=== PATIENT | female | born 1995 | race Caucasian/White ===

== ENCOUNTER → 2018-04-30 15:45 | Outpatient (POV) | payer OTHER, SELFPAY | PROVIDERS: Visit Provider Dermatology | DX: Z00.00 Encounter for general adult medical examination without abnormal findings (principal) ==

== ENCOUNTER → 2019-02-17 08:45 | Outpatient (CLI) | payer OTHER, SELFPAY ==
[2019-02-17 09:27] LABS: Basophils % 0.5 % (0.1-2.0); Eosinophils # 0.1 K/mm3 (0.0-0.4); Hematocrit 39.6 % (37.0-47.0); Hemoglobin 12.7 g/dL (12.2-16.2); Lymphocytes # 1.8 K/mm3 (0.7-4.5); Lymphocytes % 44.4 % (10-50); Mean Corpuscular HGB Conc 32.2 g/dL (31.8-35.4); Mean Corpuscular Volume 90.1 fl (81-99); Mean Platelet Volume 7.7 fl (7.4-10.4); Monocytes # 0.3 K/mm3 (0.1-1.0); Monocytes % 6.2 % (1.7-9.3); Neutrophils # 1.9 K/mm3 (1.8-7.8); Neutrophils % 46.9 % (37.0-80.0); Platelet Count 312 K/mm3 (142-424); Red Cell Distribution Width 12.8 % (11.5-17.5); White Blood Count 4.1 K/mm3 (4.8-10.8)
[2019-02-17 10:22] LABS: HCG Qualitative, Serum Negative (Negative)
[2019-02-17 12:08] LABS: Alanine Aminotransferase 14 U/L (12-78); Albumin Level 3.3 gm/dL (3.4-5.0); Albumin/Globulin Ratio 0.9 (1.1-1.8); Alkaline Phosphatase 64 U/L (46-116); Anion Gap 14.9 mEq/L (5-15); Aspartate Amino Transferase 18 U/L (15-37); Bilirubin,Total 0.5 mg/dL (0.2-1.0); Blood Urea Nitrogen 10 mg/dL (7-18); Calcium 8.8 mg/dL (8.5-10.1); Carbon Dioxide 25 mmol/L (21.0-32.0); Chloride 104 mmol/L (98-107); Chol/HDL Ratio 2.7 (1-3.5); Cholesterol 214 mg/dL (140-200); Creatinine,Serum 0.68 mg/dL (0.55-1.02); Estimated Glomerular Filt Rate 106 ml/min (>60); GFR (African American) 129 ML/MIN (>60); Globulin 3.5 gm/dl (1.3-3.2); Glucose 91 mg/dL (74-106); HDL Cholesterol 79 mg/dL (29-89); LDL Cholesterol 99 mg/dL (0-130); Potassium 4.9 mmoL/L (3.5-5.1); Sodium 139 mmol/L (136-145); T4 (Thyroxine) 9.9 ug/dl (4.7-13.3); Total Protein,Serum 6.8 gm/dL (6.4-8.2); Triglycerides 181 mg/dL (30-200); VLDL Cholesterol 36 mg/dL (0-40)
[2019-02-18 15:01] LABS: Vitamin B12 285 pg/mL (232-1245)
[2019-02-18 15:02] LABS: Vitamin D 25 Hydroxy 38.5 ng/mL (30.0-100.0)
== END ==
PROVIDERS: Visit Provider Physician Assistant
DX: R42 Dizziness and giddiness (principal)
CPT/HCPCS: 36415; 80053; 80061; 82607; 82652; 84436; 84443; 84703; 85025

== ENCOUNTER 2019-10-29 20:37 | Emergency (ER) | payer OTHER, SELFPAY ==
--- NOTE | 2019-10-29 20:39 | ECG_ITS ---
APPROVED REPORT Exam: Resting ECG HR:102 bpm ECG Measurements Heart Rate 102 AXES NJ 142 P 51 QRSd 80 QRS 98 QT 328 T 65 QTc 427 <Conclusion> Sinus tachycardia Rightward axis NDST-T Changes Borderline ECG Electronically signed by : Deandre Rose, 10/31/2019 12:29:42
[2019-10-29 20:47] VITALS: BP 140/95; PULSE 100; RESP 18; TEMP 36.6; O2SAT 99; BMI 23.8
--- NOTE | 2019-10-29 20:48 | CT_ITS ---
PROCEDURE: CT ANGIO CHEST CLINCIAL INDICATION: chest pain Chest pain, pressure, heaviness, history of heart surgery COMPARISON: No exams were available for comparison TECHNIQUE: IV Contrast: 70ML OPTIRAY 350 Axial images obtained with sagittal and coronal reformats. All CT scans at the facility use one or more dose reduction, viz: automated exposure control, ma/kV adjustment per patient size (including targeted exams where dose is matched to indication, i.e. head), or iterative reconstruction technique. FINDINGS: No evidence of aortic aneurysm, dissection, or pulmonary embolus. Prior mitral valve replacement there is evidence of old granulomatous disease. Minimal atelectatic changes are present in the lung bases. No lobar consolidation or collapse the. No acute bony anomalies. Upper abdominal images are unremarkable. IMPRESSION: No acute finding Dictated by: Raciel Salcedo MD 10/30/2019 08:08 Electronically signed by Raciel Salcedo MD in [place] 10/30/2019 08:08
[2019-10-29 21:00] VITALS: BP 141/84; PULSE 94; RESP 18; O2SAT 99
[2019-10-29 21:09] LABS: Basophils % 0.3 % (0.1-2.0); Eosinophils # 0.1 K/mm3 (0.0-0.4); Eosinophils % 1.1 % (0.1-12.0); Hematocrit 39.6 % (37.0-47.0); Hemoglobin 13.6 g/dL (12.2-16.2); Lymphocytes # 2.3 K/mm3 (0.7-4.5); Lymphocytes % 30.7 % (10-50); Mean Corpuscular HGB Conc 34.5 g/dL (31.8-35.4); Mean Corpuscular Hemoglobin 30.4 pg (27.0-31.2); Mean Corpuscular Volume 88.2 fl (81-99); Mean Platelet Volume 7.8 fl (7.4-10.4); Monocytes # 0.4 K/mm3 (0.1-1.0); Monocytes % 5.3 % (1.7-9.3); Neutrophils # 4.6 K/mm3 (1.8-7.8); Neutrophils % 62.5 % (37.0-80.0); Platelet Count 297 K/mm3 (142-424); Red Blood Count 4.49 M/mm3 (4.20-5.40); White Blood Count 7.4 K/mm3 (4.8-10.8)
[2019-10-29 21:14] LABS: Chloride 104 mmol/L (98-107); Sodium 141 mmol/L (136-145)
[2019-10-29 21:15] LABS: Potassium 3.3 mmoL/L (3.5-5.1)
[2019-10-29 21:18] LABS: Anion Gap 16.3 mEq/L (5-15); Blood Urea Nitrogen 12 mg/dl (7-17); Calcium 9.5 mg/dl (8.4-10.2); Carbon Dioxide 24 mmol/L (22.0-30.0); Creatinine Clearance Estimated 101 mL/min (50-200); Estimated Glomerular Filt Rate 88 ml/min (>60); GFR (African American) 107 ML/MIN (>60); Glucose 124 mg/dl (74-100)
--- NOTE | 2019-10-29 21:20 | PC.NURSE ---
PATIENT GONE TO CT AT THIS TIME
[2019-10-29 21:23] LABS: HCG Qualitative, Serum Negative (Negative)
[2019-10-29 21:38] LABS: Troponin I < 0.01 ng/ml (0.00-0.034)
[2019-10-29 21:42] VITALS: BP 166/96; PULSE 88; RESP 18; O2SAT 97
[2019-10-29 22:25] VITALS: BP 158/90; PULSE 85; RESP 16; O2SAT 98
--- NOTE | 2019-10-29 22:25 | HMH.EDCP ---
ED Disposition Clinical Impression: Atypical chest pain Disposition: Home, Self-Care Condition on Discharge: Good Instructions: DI for Atypical Chest Pain Additional Instructions: Please follow-up with Bryson Whiteside in cardiology for a stress echo. Prescriptions: Nabumetone 750 mg PO BID 10 Days #20 tab Transmission Status: Pending to [facility] Pantoprazole Sodium [Protonix 40mg tablet] 40 mg PO DAILY 30 Days #30 tab Transmission Status: Pending to [facility] Referrals: Quinton Tyler MD [Primary Care Provider] - Bryson Whiteside PA [Physician Foreman Or Supervisor And Operator] - - Critical Care Critical Care Time: No Attestation: On 10/29/19, the high probability of a clinically significant, sudden or life threatening deterioration of the following system(s) required my full and direct attention, intervention and personal management. The time I documented below is in addition to time spent performing reported procedures but includes the following listed in this critical care notation. Medical Decision Making - Medical Records Medical records reviewed: Yes: I reviewed the patient's medical records. - Rigoberto Inquiry Pt receiving controlled substance: No Vital Signs: 10/29/19 20:47 10/29/19 21:00 10/29/19 21:42 Temperature 97.9 F Temperature Source Oral Pulse Rate [Right Brachial] 100 H 94 H 88 Respiratory Rate 18 18 18 Blood Pressure [Right Arm] 140/95 H 141/84 H 166/96 H Blood Pressure Mean [Right Arm] 110 103 119 Blood Pressure Source [Right Arm] Automatic Cuff Blood Pressure Position [Right Arm] Sitting 02 Sat by Pulse Oximetry 99 99 97 Oxygen Delivery Method Room Air Room Air - Lab Data Lab results reviewed: Yes: I reviewed the patient's lab results. Lab Results 10/29/19 21:00: WBC 7.4, RBC 4.49, Hgb 13.6, Hct 39.6, MCV 88.2, MCH 30.4, MCHC 34.5, RDW 13.0, Plt Count 297, MPV 7.8, Neut % (Auto) 62.5, Lymph % (Auto) 30.7, [place] % (Auto) 5.3, Eos % (Auto) 1.1, Baso % (Auto) 0.3, Neut # (Auto) 4.6, Lymph # (Auto) 2.3, [place] # (Auto) 0.4, Eos # (Auto) 0.1, Baso # (Auto) 0.0 10/29/19 21:00: Sodium 141, Potassium 3.3 L, Chloride 104, Carbon Dioxide 24, Anion Gap 16.3 H, BUN 12, Creatinine 0.80, Estimated Creat Clear 101, Estimated GFR 88, Est GFR ( Amer) 107, Glucose 124 H, Calcium 9.5, Troponin I < 0.01 10/29/19 21:00: Serum HCG, Qual Negative Result diagrams: 10/29/19 21:00 10/29/19 21:00 Orders (Tests/Meds): ED MEDICATIONS Generic Name Dose Route Start Last Admin Trade Name Freq PRN Reason Stop Dose Admin Sodium Chloride 1,000 mls @ 999 mls/hr 10/29/19 21:15 10/29/19 21:16 Sod Chlor 0.9% 1000ml Bag IV 10/29/19 22:15 999 mls/hr .Q1H1M ZACH Administration Discontinued Medications Generic Name Dose Route Start Last Admin Trade Name Freq PRN Reason Stop Dose Admin Sodium Chloride 500 mls @ 999 mls/hr 10/29/19 21:15 Sod Chlor 0.9% 1000ml Bag IV 10/29/19 21:45 .Q31M ZACH Ioversol 70 ml 10/29/19 21:43 10/29/19 21:44 Rad-Optiray 350 100ml Vial IV 10/29/19 21:44 70 ml ONCE ONE Administration Protocol Morphine Sulfate 4 mg 10/29/19 21:02 10/29/19 21:14 Morphine 4mg/Ml Syringe IV 10/29/19 21:03 4 mg ONCE ONE Administration Morphine Sulfate 4 mg 10/29/19 21:48 10/29/19 22:23 Morphine 4mg/Ml Syringe IV 10/29/19 21:49 4 mg ONCE ONE Administration Ondansetron HCl 4 mg 10/29/19 21:02 10/29/19 21:14 Zofran 4mg/2ml Vial IV 10/29/19 21:03 4 mg ONCE ONE Administration Sodium Chloride 50 ml 10/29/19 21:43 10/29/19 21:44 Rad-Ns 50ml Vial IV 10/29/19 21:44 50 ml ONCE ONE Administration Sodium Chloride 10 ml 10/29/19 21:43 10/29/19 21:44 Rad-Saline Flush 10ml Syringe IV 10/29/19 21:44 10 ml ONCE ONE Administration ORDERS Category Date Time Status CTA Chest [CT angio chest] Stat Cat Scan 10/29/19 20:48 Taken Chest XR 2 view (NOT portable) [XR chest 2V] Stat Exams 10/29/19 20:45 Stop
[2019-10-29 23:01] VITALS: BP 142/93; PULSE 80; RESP 16; TEMP 36.6; O2SAT 99
== END 2019-10-29 23:05 | disposition home or self-care (01) ==
PROVIDERS: Emergency Provider Family Medicine; PCP Emergency Medicine
DX: R07.89 Other chest pain (principal); Z95.2 Presence of prosthetic heart valve; Z88.8 Allergy status to other drugs, medicaments and biological substances; Z90.09 Acquired absence of other part of head and neck
CPT/HCPCS: 71275; 80048; 84484; 84703; 85025; 93005; 96365; 96375; 96376; 99284; J2405; Q9967

== ENCOUNTER → 2020-07-20 10:10 | Outpatient (POV) | payer OTHER, SELFPAY | PROVIDERS: Visit Provider Otolaryngology | DX: Z00.00 Encounter for general adult medical examination without abnormal findings (principal) ==

== ENCOUNTER → 2020-08-31 10:22 | Outpatient (POV) | payer OTHER, SELFPAY | PROVIDERS: Visit Provider Otolaryngology | DX: Z00.00 Encounter for general adult medical examination without abnormal findings (principal) ==

== ENCOUNTER → 2020-11-02 14:57 | Outpatient (POV) | payer OTHER, SELFPAY | PROVIDERS: Visit Provider Dermatology | DX: Z00.00 Encounter for general adult medical examination without abnormal findings (principal) ==

== ENCOUNTER → 2020-12-27 09:41 | Outpatient (CLI) | payer OTHER, SELFPAY | PROVIDERS: PCP Emergency Medicine; Visit Provider Nurse Practitioner | DX: Z20.822 Contact with and (suspected) exposure to COVID-19 (principal) | CPT/HCPCS: C9803; U0003; U0005 ==

== ENCOUNTER → 2021-05-20 11:14 | Outpatient (CLI) | payer OTHER, SELFPAY ==
[2021-05-20 13:25] LABS: Strep Scrn Group A (Rapid) Negative (Negative)
== END ==
PROVIDERS: PCP Emergency Medicine; Visit Provider Nurse Practitioner
DX: J02.9 Acute pharyngitis, unspecified (principal)
CPT/HCPCS: 87430

== ENCOUNTER → 2021-05-20 13:50 | Outpatient (CLI) | payer OTHER, SELFPAY | PROVIDERS: PCP Emergency Medicine; Visit Provider Nurse Practitioner | DX: Z20.822 Contact with and (suspected) exposure to COVID-19 (principal) | CPT/HCPCS: C9803; U0003; U0005 ==

== ENCOUNTER 2021-10-10 19:27 | Emergency (ER) | payer OTHER, SELFPAY ==
[2021-10-10 19:28] VITALS: BP 187/109; PULSE 114; RESP 16; TEMP 36.7; O2SAT 98; BMI 27.4
--- NOTE | 2021-10-10 19:43 | ECG_ITS ---
APPROVED REPORT Exam: Resting ECG HR:110 bpm ECG Measurements Heart Rate 110 AXES OR 151 P 61 QRSd 82 QRS 102 QT 308 T 54 QTc 373 Conclusion SINUS TACHYCARDIA RIGHT AXIS DEVIATION [QRS AXIS > 100] NONSPECIFIC T-WAVE ABNORMALITY ABNORMAL ECG INTERPRETATION BASED ON A DEFAULT AGE OF 40 YEARS UNCONFIRMED REPORT Electronically signed by : Gui Crespo MD 10/12/2021 17:59:16
--- NOTE | 2021-10-10 19:44 | XR_ITS ---
PROCEDURE INFORMATION: Exam: XR Chest Exam date and time: 10/10/2021 7:56 PM Age: 26 years old Clinical indication: Chest pressure and chest wall pain; Additional info: Cp when taking in deep breath or trying to lay-- TECHNIQUE: Imaging protocol: Radiologic exam of the chest. Views: 1 view. COMPARISON: CT ANGIO CHEST 10/29/2019 9:28 PM FINDINGS: Lungs: No focal lung consolidation. Pleural spaces: No pneumothorax or pleural effusion. Heart/Mediastinum: No cardiomegaly. Mitral valve replacement. Bones/joints: Unremarkable. IMPRESSION: No acute findings.
[2021-10-10 19:45] VITALS: BMI 27.4
[2021-10-10 20:07] LABS: Influenza A, PCR Not Detected (NotDetected); Influenza B, PCR Not Detected (NotDetected)
[2021-10-10 20:15] LABS: Chloride 102 mmol/L (98-107); Potassium 3.7 mmoL/L (3.5-5.1); Sodium 136 mmol/L (136-145)
[2021-10-10 20:16] LABS: Basophils # 0.1 K/mm3 (0-0.2); Basophils % 0.6 % (0.1-2.0); Eosinophils # 0.1 K/mm3 (0.0-0.4); Eosinophils % 0.9 % (0.1-12.0); Hematocrit 41.4 % (37.0-47.0); Hemoglobin 13.7 g/dL (12.2-16.2); Lymphocytes % 25.5 % (10-50); Mean Corpuscular HGB Conc 33.1 g/dL (31.8-35.4); Mean Corpuscular Hemoglobin 29.8 pg (27.0-31.2); Mean Platelet Volume 7.1 fl (7.4-10.4); Monocytes # 0.4 K/mm3 (0.1-1.0); Monocytes % 3.5 % (1.7-9.3); Neutrophils # 8.1 K/mm3 (1.8-7.8); Neutrophils % 69.6 % (37.0-80.0); Platelet Count 384 K/mm3 (142-424); Red Cell Distribution Width 12.6 % (11.5-17.5); White Blood Count 11.6 K/mm3 (4.8-10.8)
--- NOTE | 2021-10-10 20:16 | HMH.EDSOB ---
ED Disposition Clinical Impression: Hx of mitral valve repair Chest pain Qualifiers: Chest pain type: precordial pain Qualified Code(s): R07.2 - Precordial pain Pericarditis Qualifiers: Pericarditis type: unspecified type Chronicity: acute Qualified Code(s): I30.9 - Acute pericarditis, unspecified Disposition: Home, Self-Care Condition on Discharge: Good Instructions: DI for Chest Pain Additional Instructions: see pcp and card for follow up Referrals: Quinton Tyler MD [Primary Care Provider] - - Critical Care Critical Care Time: No Attestation: On 10/10/21, the high probability of a clinically significant, sudden or life threatening deterioration of the following system(s) required my full and direct attention, intervention and personal management. The time I documented below is in addition to time spent performing reported procedures but includes the following listed in this critical care notation. Medical Decision Making - Medical Records Medical records reviewed: Yes: I reviewed the patient's medical records. - Rigoberto Inquiry Pt receiving controlled substance: No Vital Signs: 10/10/21 19:28 Temperature 98.1 F Temperature Source Oral Pulse Rate [Right] 114 H Respiratory Rate 16 Blood Pressure [Right Arm] 187/109 H Blood Pressure Mean [Right Arm] 135 02 Sat by Pulse Oximetry 98 - Lab Data Lab results reviewed: Yes: I reviewed the patient's lab results. Lab Results 10/10/21 19:40: WBC 11.6 H, RBC 4.60, Hgb 13.7, Hct 41.4, MCV 90.0, MCH 29.8, MCHC 33.1, RDW 12.6, Plt Count 384, MPV 7.1 L, Neut % (Auto) 69.6, Lymph % (Auto) 25.5, [place] % (Auto) 3.5, Eos % (Auto) 0.9, Baso % (Auto) 0.6, Neut # (Auto) 8.1 H, Lymph # (Auto) 3.0, [place] # (Auto) 0.4, Eos # (Auto) 0.1, Baso # (Auto) 0.1, ESR 18 10/10/21 19:40: Sodium 136, Potassium 3.7, Chloride 102, Carbon Dioxide 25, Anion Gap 12.7, BUN 13, Creatinine 0.70, Estimated Creat Clear 135, Estimated GFR 101, Est GFR ( Amer) 122, Glucose 138 H, Calcium 9.7, Total Bilirubin 0.5, AST 36, ALT 16, Alkaline Phosphatase 83, Troponin I < 0.01, C-Reactive Protein 45.5 H, Total Protein 8.1, Albumin 4.6, Globulin 3.5 H, Albumin/Globulin Ratio 1.3, Procalcitonin 0.079 10/10/21 19:40: Total Creatine Kinase 42 10/10/21 19:40: Serum HCG, Qual Negative 10/10/21 19:47: SARS-CoV-2 (PCR) Detected A, Influenza A Untype (PCR) Not detected, Influenza Type B (PCR) Not detected Result diagrams: 10/10/21 19:40 10/10/21 19:40 Orders (Tests/Meds): ED MEDICATIONS Generic Name Dose Route Start Last Admin Trade Name Freq PRN Reason Stop Dose Admin Sodium Chloride 1,000 mls @ 999 mls/hr 10/10/21 20:30 10/10/21 20:36 Sod Chlor 0.9% 1000ml Bag IV 10/10/21 21:30 999 mls/hr .Q1H1M ZACH Administration Discontinued Medications Generic Name Dose Route Start Last Admin Trade Name Freq PRN Reason Stop Dose Admin Acetaminophen/Codeine Phosphate 1 packet 10/10/21 22:40 Acetaminophen 300mg W/Codeine 30mg Take Home Pack (6) PO 10/10/21 22:41 ONCE ONE Hydromorphone HCl 1 mg 10/10/21 20:21 10/10/21 20:35 Hydromorphone 2mg/Ml Syringe IV 10/10/21 20:22 1 mg ONCE ONE Administration Hydromorphone HCl 1 mg 10/10/21 20:22 10/10/21 20:24 Hydromorphone 2mg/Ml Syringe IV 10/10/21 20:23 Not Given ONCE ONE Iopamidol 70 ml 10/10/21 20:40 10/10/21 20:47 Iopamidol-370 (76%);100ml Bottle IV 10/10/21 20:41 70 ml ONCE ONE Administration Ketorolac Tromethamine 30 mg 10/10/21 20:22 10/10/21 20:36 Ketorolac 30mg/Ml Vial IV 10/10/21 20:23 30 mg ONCE ONE Administration Methylprednisolone Sodium Succinate 125 mg 10/10/21 20:22 10/10/21 20:36 Methylprednisolone Sod Succ 125mg Vial IV 10/10/21 20:23 125 mg ONCE ONE Administration Sodium Chloride 50 ml 10/10/21 20:40 10/10/21 20:47 0.9 % Sodium Chloride 50 Ml Vial IV 10/10/21 20:41 50 ml ONCE ONE Administration Sodium Chloride 10 ml 10/10/21 20:40
[2021-10-10 20:17] LABS: Alanine Aminotransferase 16 U/L (12-78); Aspartate Amino Transferase 36 U/L (14-36); Blood Urea Nitrogen 13 mg/dl (7-17); Creatinine Clearance Estimated 135 mL/min (50-200); Estimated Glomerular Filt Rate 101 ml/min (>60); GFR (African American) 122 ML/MIN (>60)
[2021-10-10 20:18] LABS: Albumin Level 4.6 g/dl (3.5-5.0); Albumin/Globulin Ratio 1.3 (1.1-1.8); Alkaline Phosphatase 83 U/L (38-126); Anion Gap 12.7 mEq/L (5-15); Bilirubin,Total 0.5 mg/dl (0.2-1.3); Calcium 9.7 mg/dl (8.4-10.2); Carbon Dioxide 25 mmol/L (22.0-30.0); Globulin 3.5 g/dL (1.3-3.2); Glucose 138 mg/dl (74-100); Total Protein,Serum 8.1 g/dl (6.3-8.2)
--- NOTE | 2021-10-10 20:21 | CT_ITS ---
PROCEDURE INFORMATION: Exam: CTA Chest With Contrast Exam date and time: 10/10/2021 8:35 PM Age: 26 years old Clinical indication: Sternal or substernal pain; Prior surgery; Surgery type: Mitral valve repair; Additional info: Cp TECHNIQUE: Imaging protocol: Computed tomographic angiography of the chest with contrast. 3D rendering (Not supervised by radiologist): MIP and/or 3D reconstructed images were created by the technologist. Radiation optimization: All CT scans at this facility use at least one of these dose optimization techniques: automated exposure control; mA and/or kV adjustment per patient size (includes targeted exams where dose is matched to clinical indication); or iterative reconstruction. Contrast material: ISOVUE; Contrast volume: 70 ml; Contrast route: INTRAVENOUS (IV); COMPARISON: CT ANGIO CHEST 10/29/2019 9:28 PM FINDINGS: Tubes, catheters and devices: Prosthetic mitral valve. Pulmonary arteries: There is no evidence of filling defects within the pulmonary arterial circulation to suggest pulmonary embolism. Aorta: The aorta is unremarkable. Lungs: Unremarkable. No consolidation. No masses. Pleural spaces: Unremarkable. No pneumothorax. No pleural effusion. Heart: No cardiomegaly or pericardial effusion. Lymph nodes: Calcified lymph nodes in right hilum likely due to old granulomatous disease. Spleen: Calcified granulomas. No further significant findings in the upper abdomen. Bones/joints: Unremarkable. No acute fracture. Soft tissues: Unremarkable. IMPRESSION: No evidence of pulmonary emboli or pneumonia.
[2021-10-10 20:23] LABS: C-Reactive Protein 45.5 mg/L (0-4)
[2021-10-10 20:32] LABS: Troponin I < 0.01 ng/ml (0.00-0.034)
[2021-10-10 20:44] LABS: Erythrocyte Sedimentation Rate 18 mm/hr (0-20)
[2021-10-10 21:08] LABS: Coronavirus 19, PCR Detected (NotDetected)
[2021-10-10 21:25] LABS: Procalcitonin 0.079 ng/mL (0.0-2.0)
[2021-10-10 21:52] LABS: Creatine Kinase 42 U/L (30-135)
[2021-10-10 22:38] LABS: HCG Qualitative, Serum Negative (Negative)
[2021-10-10 22:44] VITALS: BP 122/69; PULSE 82; RESP 19; TEMP 36.7; O2SAT 98
[2021-10-10 22:57] LABS: NT Pro Brain Natriuretic Pep. 219 pg/mL (0-125)
== END 2021-10-10 22:55 | disposition home or self-care (01) ==
PROVIDERS: Emergency Provider Emergency Medicine; PCP Emergency Medicine
DX: R07.2 Precordial pain (principal); I30.9 Acute pericarditis, unspecified; Z95.4 Presence of other heart-valve replacement; Z88.8 Allergy status to other drugs, medicaments and biological substances
CPT/HCPCS: 71045; 71275; 80053; 82550; 83880; 84145; 84484; 84703; 85025; 85651; 86140; 93005; 96365; 96375; 99284; C9803; Q9967; U0003; U0005

== ENCOUNTER → 2021-10-11 13:33 | Outpatient (CLI) | payer OTHER, SELFPAY ==
--- NOTE | 2021-10-11 13:34 | CA_ITS ---
APPROVED REPORT EXAM: Comprehensive 2D, Doppler, and color-flow Echocardiogram Cardiology Clinical Consultant: Jennifer Mckeon RDCS Ht: 5 ft 3 in Wt: 155lbs BSA: 1.74 BP: 120/70 mmHg Indications: COVID ACTIVE,CP,MV REPAIR RING 2D Dimensions LVOT 2.04 cm (M/F) 1.5-2.5 M-Mode Dimensions RVDd 1.53 cm (0.9-2.6) LA Diam 2.86 cm (1.9-4.0) LVDd 4.57 cm (3.5-5.7) Ao Diam 2.57 cm (2.0-3.7) LVDs 3.10 cm (3.5-5.7) IVSd 0.63 cm (0.6-1.1) PWd 0.75 cm (0.6-1.1) EF (Teich) 60.50% FS 32.20% EDV (Teich) 95.90 mL ESV (Teich) 37.90 mL LV Diastology MED E' 9.50 (< 7 cm/sec) LAT E' 12.10 (<10 cm/sec) Mitral Valve MV PHT 98.00 ms Left Ventricle Left atrium normal size, left ventricle is normal size, there is no concentric left ventricular hypertrophy, estimated ejection fraction 55% with no regional wall motion abnormality, diastolic parameters are within normal range. Right Ventricle Right atrium and right ventricle are normal size and contractility. Aortic Valve Aortic valve is grossly normal, there is no aortic stenosis or aortic insufficiency. Mitral Valve Mitral valve has mitral valve ring, there is no mitral inflow obstruction or mitral regurgitation. Tricuspid Valve Tricuspid grossly normal, there is trace tricuspid regurgitation tricuspid regurgitation jet velocity is inadequate for calculation of the right ventricular systolic pressure. Pulmonic Valve Pulmonic valve is poorly visualized Great Vessels Aortic root normal size. Inferior vena cava is normal size with normal inspiratory collapse. Pericardium No significant pericardial effusion. Conclusion 1. Normal left ventricular size and systolic function with ejection fraction 55% with no regional wall motion abnormality, diastolic parameters are within normal range. 2. Status post mitral valve repair with no significant mitral inflow obstruction or mitral regurgitation. 3. Trace tricuspid regurgitation. 4. No significant pericardial effusion. 5. Inferior vena cava is normal size with normal inspiratory collapse. Electronically signed by : Kevin Toney MD 10/11/2021 19:30:25
== END ==
PROVIDERS: PCP Emergency Medicine; Visit Provider Internal Medicine
DX: I31.9 Disease of pericardium, unspecified (principal)
CPT/HCPCS: 93306

== ENCOUNTER 2021-12-09 08:06 | Emergency (ER) | payer OTHER, SELFPAY ==
[2021-12-09 08:21] VITALS: BP 142/78; PULSE 104; RESP 18; TEMP 36.9; O2SAT 98; BMI 27.4
--- NOTE | 2021-12-09 08:32 | EXP.UTC ---
Discharge Plan Disposition Patient Disposition: Home, Self-Care Condition: Good Prescriptions Prescriptions: New cefdinir 300 mg capsule 300 mg PO BID 20 Days Qty: 20 0RF No Action drospirenone-ethinyl estradiol [Lo-Zumandimine (28)] 3-0.02 mg tablet 1 tab PO DAILY Qty: 28 11RF sertraline [Zoloft] 50 mg tablet 50 mg PO DAILY Qty: 90 2RF fluconazole [Diflucan] 150 mg tablet 150 mg PO ONCE Qty: 1 0RF Referrals Follow up/Referrals: Quinton Tyler MD [Primary Care Provider] - See instructions Activity Restrictions/Add. Instructions Additional Instructions/Restrictions: Take all antibiotics as prescribed until gone. Replace toothbrush. Throat culture should be available Sunday/Sunday. Follow up if not improving. Clinical Impressions Clinical Impression: Acute left otitis media, Acute tonsillitis Instructions Patient Instructions: DI for Pharyngitis/Tonsillopharyngitis -- Adult Discharge ED Provider: Marcella Grimes [facility] [place] General Stated complaint: Sore throat, fever, LT ear pain Mode of Arrival: Ambulatory Source of Information: Patient Limitations: No Limitations Time Seen by Provider: 12/09/21 08:32 Description of Symptoms (Recalled from Triage Doc. by RN): pt comes in with c/o sore throat and left ear pain. symptoms began yesterday. HEENT Symptoms (Recalled from RN notes): Yes Resp Symptoms (Recalled from RN notes): No Skin Symptoms (Recalled from RN notes): No MS Symptoms (Recalled from RN notes): No Functional Status (Recalled from RN notes): n/a History of Present Illness Provider Complaint: Left ear pain, sore throat, fever. Started yesterday. Getting progressively worse. Can hardly swallow today. Onset (ago): day(s) (1) Location: mouth Radiation: non-radiation Severity: moderate Severity scale (1-10): 5 Consistency: constant Relieving factors: none Exacerbating factors: eating Associated symptoms: fever/chills Treatments prior to arrival: other (ear drops) Related Data Previous Rx's Medication Instructions Recorded drospirenone 3 mg-ethinyl 1 tab PO DAILY #28 ea 08/19/21 estradiol 0.02 mg tablet (Lo-Zumandimine (28)) sertraline 50 mg tablet (Zoloft) 50 mg PO DAILY #90 tabs 10/14/21 fluconazole 150 mg tablet 150 mg PO ONCE #1 tab 12/02/21 (Diflucan) cefdinir 300 mg capsule 300 mg PO BID 20 days #20 caps 12/09/21 Allergies Allergy/AdvReac Type Severity Reaction Status Date / Time nitroglycerin Allergy Verified 12/09/21 08:24 Worker's Comp Is this a Worker's Comp case?: No PFSH PFSH Medical History (Updated 12/09/21 @ 08:41 by LILLY Mccrary) Family history of breast cancer Hx of mitral valve prolapse Pleurisy Surgical History Hx of mitral valve repair Social History Smoking Status: Never smoker alcohol intake: never substance use type: denies use current occupational status: employed Travel in the last 8 weeks: None household members: spouse housing: house number of children: 0 ROS Obtained: Yes All systems reviewed & no additional complaints except as documented Constitutional Constitutional: Reports fever(s) Eyes Eyes: Reports dry eyes ENT Ears, Nose, Mouth, and Throat: Reports otalgia and Reports sore throat Physical Exam General General appearance: alert and in no apparent distress Head Head exam: atraumatic, normocephalic and normal inspection Eye Eye exam: Present normal appearance, PERRL and EOMI ENT ENT exam: Present normal exam, mucous membranes moist and normal external ear exam Expanded ENT Exam TM/Canal exam: Left TM: erythema and bulging Throat exam: Present tonsillar erythema, tonsillomegaly and tonsillar exudate Neck Neck exam: Present normal inspection, full ROM and trachea midline; Absent meningismus or lymphadenopathy Chest Chest inspection: Present normal inspection a
[2021-12-09 08:33] LABS: UTC Strep Screen (Rapid) Negative (Negative)
[2021-12-09 08:42] VITALS: BP 142/78; PULSE 104; RESP 18; TEMP 36.9
== END 2021-12-09 08:47 | disposition home or self-care (01) ==
PROVIDERS: Emergency Provider Physician Assistant; PCP Emergency Medicine
DX: H66.92 Otitis media, unspecified, left ear (principal); J03.90 Acute tonsillitis, unspecified
CPT/HCPCS: 87070; 87880; 99212; G0463

== ENCOUNTER 2022-02-17 16:03 | Outpatient (CLI) | payer OTHER, SELFPAY ==
[2022-02-17 17:41] VITALS: BMI 25.7
--- NOTE | 2022-02-17 17:43 | PC.NURSE ---
Pt c/o pain after having tooth pulled yesterday. Written order by Roger Kraft APRN for dental balls. PT registered and dentals ball made and pt instructed on their use. Verbalized understanding
== END 2022-02-17 17:46 | disposition home or self-care (01) ==
PROVIDERS: PCP Emergency Medicine; Visit Provider Emergency Medicine
DX: K08.89 Other specified disorders of teeth and supporting structures (principal)

== ENCOUNTER → 2022-12-11 23:12 | Outpatient (CLI) | payer OTHER, SELFPAY ==
[2022-12-11 18:41] LABS: Basophils % 0.4 % (0.1-2.0); Eosinophils # 0.1 K/mm3 (0.0-0.4); Eosinophils % 1.4 % (0.1-12.0); Hematocrit 46.7 % (37.0-47.0); Hemoglobin 14.5 g/dL (12.2-16.2); Lymphocytes # 1.7 K/mm3 (0.7-4.5); Lymphocytes % 32.3 % (10-50); Mean Corpuscular HGB Conc 31.1 g/dL (31.8-35.4); Mean Corpuscular Hemoglobin 28.6 pg (27.0-31.2); Mean Platelet Volume 9.5 fl (7.4-10.4); Monocytes # 0.3 K/mm3 (0.1-1.0); Monocytes % 6.1 % (1.7-9.3); Neutrophils # 3.2 K/mm3 (1.8-7.8); Neutrophils % 59.7 % (37.0-80.0); Platelet Count 312 K/mm3 (142-424); Red Blood Count 5.07 M/mm3 (4.20-5.40); Red Cell Distribution Width 13.8 % (11.5-17.5); White Blood Count 5.4 K/mm3 (4.8-10.8)
[2022-12-11 18:58] LABS: Alanine Aminotransferase 11 U/L (12-78); Albumin Level 4.4 g/dl (3.5-5.0); Albumin/Globulin Ratio 1.4 (1.1-1.8); Alkaline Phosphatase 83 U/L (38-126); Anion Gap 13.7 mEq/L (5-15); Aspartate Amino Transferase 26 U/L (14-36); Bilirubin,Total 0.9 mg/dl (0.2-1.3); Blood Urea Nitrogen 11 mg/dl (7-17); Calcium 9.2 mg/dl (8.4-10.2); Carbon Dioxide 25 mmol/L (22.0-30.0); Chloride 103 mmol/L (98-107); Estimated Glomerular Filt Rate 100 ml/min (>60); GFR (African American) 121 ML/MIN (>60); Globulin 3.1 g/dL (1.3-3.2); Glucose 94 mg/dl (74-100); Potassium 4.7 mmoL/L (3.5-5.1); Sodium 137 mmol/L (136-145); Total Protein,Serum 7.5 g/dl (6.3-8.2)
[2022-12-11 19:18] LABS: 25-OH Vitamin D, Total 38.9 ng/mL (30-100)
[2022-12-11 19:31] LABS: Thyroid Stimulating Hormone 1.68 uIU/mL (0.465-4.68)
== END ==
PROVIDERS: PCP Student in an Organized Health Care Education/Training Program; Visit Provider Student in an Organized Health Care Education/Training Program
DX: L73.9 Follicular disorder, unspecified (principal)
CPT/HCPCS: 80053; 82306; 84443; 85025